=== PATIENT | female | born 1970 | race African-American/Black ===

== ENCOUNTER 2016-09-08 12:41 | Emergency (ER) | payer OTHER ==
[~2016-09-08 12:41] MED LIST: (NONE) 12.5 MG-1 TAB PO; HCTZ/LISINOPRIL1 TAB PO; LATUDA20 MG PO; LEVSIN-SL0.125 MG PO; LISINOPRIL10 MG PO; PRINIVIL 5MG5 MG PO
--- NOTE | 2016-09-08 13:21 | ED GENERAL ADULT ---
History of Present Illness General Chief Complaint: Low Back Pain/Injury Stated Complaint: SIATICA PAIN, DYSPNEA, LIGHTHEADED Source: patient Exam Limitations: no limitations Vital Signs & Intake/Output Vital Signs & Intake/Output Vital Signs Date Time Temp Pulse Resp B/P Pulse O2 O2 Flow FiO2 Ox Delivery Rate 09/08 1716 92 20 122/74 97 Room Air 09/08 1544 97.6 96 16 132/82 96 Room Air 09/08 1413 99 Room Air 09/08 1341 98.5 09/08 1244 98.5 112 20 123/88 99 Room Air Allergies Coded Allergies: NO KNOWN ALLERGIES (10/13/15) Reconcile Medications Meloxicam (Mobic) 15 MG TABLET 1 TAB PO DAILY PRN SCIATICA Triage Note: PT PRESENTS TO ER C/O OF SIATICA PAIN, CHEST TIGHTNESS, SOB WITH EXERTION, AND FEELING LIGHTHEADED. PT STATES SIATICA PAIN STARTED A FEW DAYS AGO PT DOES NOT RECALL AN INJURY OR TRIGGER TO SIATICA. PT ALSO STATE SHE HAS NOT TAKEN HER BP MEDS IN A WEEK BECAUSE SHE RAN OUT. PT STATES SHE HAS A DULL HEADACHE. PT BP AT TRIAGE 123/88 HR 112 Triage Nurses Notes Reviewed? yes Onset: Gradual Duration: day(s): (2) Timing: recent history Injury Environment: home Severity: moderate Severity Numbers: 7 Modifying Factors: Improves With: immobilization. Worsens With: movement. : No Patient currently breastfeeds: No HPI: Patient is a 45-year-old female presenting to the emergency department with chief complaint of worsening sciatic on the right side. Patient reports that she has long-standing history of sciatica over the past several years but has been worse over the past couple days. Patient also reporting lightheadedness and malaise over the past 2 days. Denies any fevers, positive chills. No sick contacts or recent travel. Denies any urinary incontinence or retention. No hematuria. Denies flank pain or abdominal pain. Has been using her pain patches with little to no relief. Denies any injury. No falls. Denies any lower extremity weakness. Patient also reporting intermittently productive cough for the past couple days. Past History Travel History Traveled to [place] past 21 day No Medical History Any Pertinent Medical History? 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 No Review of Systems Review of Systems Constitutional: Reports: malaise. Comments Review of systems: See HPI, All other systems negative. Constitutional, no chills fever or weight loss HEENT: No visual changes no sore throat Cardiovascular: No chest pain ,palpitation , orthopnea or ankle swelling Skin, no jaundice no rashes Respiratory: No dyspnea sputum or hemoptysis GI: No nausea no vomiting : No dysuria No hematuria Muscle skeletal: no neck pain, Neurologic: No numbness no confusion no cruz Psych: No stress anxiety or depression,. Heme/endocrine: No bruising no bleeding no polyuria or polydipsia Immunology: No splenectomy or history of AIDS Physical Exam Physical Exam General Appearance: well developed/nourished, no apparent distress, alert, comfortable, obese Comments: Obese person in no acute distress HEENT: extraocular motion intact, no nystagmus. Pupils equally round and reactive to light and accommodation. Nose is atraumatic. Clear nasal discharge bilaterally. External auditory canal and Tympanic membranes clear. Pharynx normal. No swelling or edema. Neck: Supple, no lymphadenopathy, normal range of motion without pain or tenderness Back: Tender to palpation over the right sacroiliac joint and right paraspinal muscles along the lumbar spine. No bony tenderness. Limited range of motion with forward flexion secondary to pain. Positive straight leg raise on the right. Cardiovascular: Regular rate and rhythms no murmurs rubs or gallops, normal JVP Respiratory: Chest nontender. No respiratory distress.breath sounds clear to auscultation bilaterally Abdomen: Soft, obese, nontender nondistended, no appreciable organomegaly. Normal bowel sounds. No ascites Extremity: Nonpitting edema in the lower extremity is bilaterally, no calf tenderness to palpation, normal and equal pulses. Neuro: Alert oriented x3, motor sensory normal, patellar reflexes are 2+ bilaterally. Skin: No appreciable rash on exposed skin, skin is warm and dry. Psych: Tearful, memory and judgment is normal. Core Measures ACS in differential dx? No CVA/TIA Diagnosis: No Severe Sepsis Present: No Septic Shock Present: No Progress Differential Diagnoses I considered the following diagnoses in my evaluation of the patient: Viral syndrome, influenza, sciatica, muscle strain, medication seeking, contusion, herniated disc, cauda equina Plan of Care: Orders Procedure Date/time Status RAPID VIRAL INFLUENZA A 09/08 1408 Complete URINE DRUG SCREEN FOR ER ONLY 09/08 1321 Complete URINALYSIS 09/08 1321 Complete TROPONIN LEVEL 09/08 1321 Complete COMPREHENSIVE METABOLIC PANEL 09/08 1321 Complete CBC WITHOUT DIFFERENTIAL 09/08 1321 Complete EKG 09/08 1249 Active Laboratory Tests 09/08/16 1541: Urine Opiates Screen < 100.00, Methadone Screen < 40, Barbiturate Screen < 60, Ur Phencyclidine Scrn < 6.00, Amphetamines Screen 127, U Benzodiazepines Scrn < 85, Urine Cocaine Screen 194, Urine Cannabis Screen > 80.00 H, Urine Color YEL, Urine Clarity CLDY H, Urine pH 6.0, Ur Specific [place] 1.020, Urine Protein 30 H, Urine Ketones NEG, Urine Nitrite NEG, Urine Bilirubin NEG@ICTO, Urine Urobilinogen 0.2, Ur Leukocyte Esterase NEG, Ur Microscopic SEDIMENT EXAMINED, Urine RBC PACKD H, Ur Epithelial Cells FEW, Urine Hemoglobin LARGE H, Urine Glucose NEG 09/08/16 1335: Anion Gap 10, Estimated GFR > 60, BUN/Creatinine Ratio 17.5, Glucose 89, Calcium 8.9, Total Bilirubin 0.3, AST 23, ALT 36, Alkaline Phosphatase 109, Troponin I 0.01, Total Protein 7.3, Albumin 3.6, Globulin 3.7, Albumin/Globulin Ratio 1.0 L, CBC w Diff NO MAN DIFF REQ, RBC 5.19, MCV 81.3, MCH 25.9 L, RDW 17.7 H, MPV 8.3, Gran % 61.1, Lymphocytes % 23.3, Monocytes % 15.0 H, Eosinophils % 0.3, Basophils % 0.3, Absolute Granulocytes 3.3, Absolute Lymphocytes 1.3, Absolute Monocytes 0.8 H, Absolute Eosinophils 0, Absolute Basophils 0, PUBS MCHC 31.9 L Microbiology 09/08 1420 NASOPHARYN: Influenza Virus A & B Rapid Smear - COMP Diagnostic Imaging: Viewed by Me: Radiology Read. Discussed w/RAD: Radiology Read. 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 Malaise. COMPARISON: None TECHNIQUE: 2 views of the chest were obtained. FINDINGS: Low lung volumes. No consolidation, edema, or effusion. No pneumothorax. The cardiomediastinal silhouette is within normal limits for this technique. No acute osseous abnormality. Mild degenerative changes in the spine. IMPRESSION: Hypoexpanded lungs with no consolidation. DICTATED BY: KURT SHEA MD DATE/TIME DICTATED:09/08/161512 Initial ED EKG: SINUS TACHYCARDIA 103 BEATS PER MINUTES Prior EKG: unchanged Comments: Patient given IV Tylenol arrival for pain. Likely exacerbation of sciatica. Neurologically intact. No focal deficits. Patient also complaining about upper respiratory symptoms. Lungs seem clear to auscultation, exam somewhat limited secondary to body habitus. Patient will fracture to rule out pneumonia. Patient was informed of all lab work results and imaging study results. Likely upper respiratory infection along with sciatica exacerbation. 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 He'll use of cough medication [id number] as well as decongestants. Orthostatics are negative. Educated on increasing fluids. She'll follow with her PCP. Started on meloxicam. Departure Departure Time of Disposition: 1700 Disposition: HOME OR SELF CARE Condition: Stable Clinical Impression Primary Impression: Upper respiratory infection Qualifiers: URI type: unspecified viral URI Qualified Codes: J06.9 - Acute upper respiratory infection, unspecified; B97.89 - Other viral agents as the cause of diseases classified elsewhere Secondary Impressions: Sciatica Qualifiers: Laterality: right Qualified Code: M54.31 - Sciatica, right side Referrals: ML DAMON MD (PCP/Family) Additional Instructions: Follow-up with your primary care physician call to make an appointment. Take meloxicam as prescribed. Avoid strenuous activity. Increase fluids. Take over -the-counter cough medication if needed. Return for worsening symptoms or concerns. Departure Forms: Customer Survey General Discharge Information Prescriptions: Current Visit Scripts Meloxicam (Mobic) 1 TAB PO DAILY PRN SCIATICA #15 TAB Critical Care Note Critical Care Note Critical Care Time: non-applicable
[2016-09-08 13:40] LABS: ABSOLUTE BASOPHIL COUNT 0 /CUMM (0.0-0.2); ABSOLUTE EOSINOPHIL COUNT 0 /CUMM (0.0-0.7); ABSOLUTE GRANULOCYTE CT 3.3 /CUMM (1.4-6.5); ABSOLUTE LYMPH COUNT 1.3 /CUMM (1.2-3.4); ABSOLUTE MONOCYTE COUNT 0.8 /CUMM (0.10-0.60); BASOPHIL % 0.3 % (0.0-2.0); EOSINOPHIL % 0.3 % (0-5); GRANULOCYTE % 61.1 % (42.2-75.2); HEMATOCRIT 42.2 % (37-47); MEAN CORPUSCULAR HGB 25.9 PG (27.0-31.0); MEAN CORPUSCULAR HGB CONC 31.9 G/DL (33.0-37.0); MEAN CORPUSCULAR VOLUME 81.3 FL (81.0-99.0); MEAN PLATELET VOLUME 8.3 FL (7.4-10.4); PLATELET COUNT 272 /CUMM (130-400); RBC DISTRIBUTION WIDTH 17.7 % (11.5-14.5); RED BLOOD CELL CT 5.19 /CUMM (4.20-5.40); WHITE BLOOD CELL COUNT 5.4 /CUMM (4.8-10.8)
--- NOTE | 2016-09-08 15:17 | RADIOLOGY REPORT ---
EXAMINATION: XR CHEST CLINICAL INFORMATION: Cough. Malaise. COMPARISON: None TECHNIQUE: 2 views of the chest were obtained. FINDINGS: Low lung volumes. No consolidation, edema, or effusion. No pneumothorax. The cardiomediastinal silhouette is within normal limits for this technique. No acute osseous abnormality. Mild degenerative changes in the spine. IMPRESSION: Hypoexpanded lungs with no consolidation.
[2016-09-08] MEDS ORDERED: MOBIC15 M1 PO (17:02)
[2016-09-08 17:16] VITALS: BP 122/74
== END 2016-09-08 17:18 ==
LOC: ERH 12:41
PROVIDERS: Physician Assistant
DX: J06.9 Acute upper respiratory infection, unspecified (principal); M54.41 Lumbago with sciatica, right side; R07.89 Other chest pain
CPT/HCPCS: 80307; 81001; 87804; 87804-59; 93005; 93010; 96374; J0131

== ENCOUNTER 2016-09-10 09:44 | Emergency (ER) | payer OTHER ==
[~2016-09-10] VITALS: Ht 157.5 cm; Wt 155.1 kg
[~2016-09-10 09:44] MED LIST changes: +MOBIC15 M1 PO
--- NOTE | 2016-09-10 10:20 | ED NECK/BACK PAIN COMPLAINT ---
History of Present Illness General Chief Complaint: Low Back Pain/Injury Stated Complaint: BACK PAIN Source: patient, old records Exam Limitations: no limitations Vital Signs & Intake/Output Vital Signs & Intake/Output Vital Signs Date Time Temp Pulse Resp B/P Pulse O2 O2 Flow FiO2 Ox Delivery Rate 09/10 1118 97.8 73 18 102/57 95 Room Air 09/10 0948 97.2 105 20 106/74 97 Room Air Allergies Coded Allergies: NO KNOWN ALLERGIES (10/13/15) Reconcile Medications Ketorolac Tromethamine 10 MG TABLET 1 TAB PO Q6P PRN sciatica Received IM in ED Lidocaine (Lidoderm) 5 % ADH..PATCH 1 PAT TOP DAILY back pain may wear up to 12 hours Meloxicam (Mobic) 15 MG TABLET 1 TAB PO DAILY PRN SCIATICA Triage Note: PT STATES "MY SCIATICA IS ACTING UP" STATES PAIN ON RIGHT LOWER BACK RADIATING DOWN RIGHT LEG SINCE 0 Triage Nurses Notes Reviewed? 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 She denies fever chills nausea vomiting diarrhea abdominal pain chest pain shortness of breath headache dysuria rash bleeding change in motor sensory function change in bowel bladder habit. Past History Travel History Traveled to [place] past 21 day No Medical History Any Pertinent Medical History? 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 No Review of Systems Review of Systems Constitutional: Reports: no symptoms. Eyes: Reports: no symptoms. Ears, Nose, Throat, Mouth: Reports: no symptoms. Respiratory: Reports: no symptoms. Cardiovascular: Reports: no symptoms. Gastrointestinal/Abdominal: Reports: no symptoms. Musculoskeletal: Reports: see HPI, back pain. Skin: Reports: no symptoms. Neurological/Psychological: Reports: no symptoms. All Other Systems: Reviewed and Negative Physical Exam Physical Exam General Appearance: well developed/nourished, alert, awake, anxious, mild distress Head: atraumatic, normal appearance Eyes: Bilateral: PERRL, EOMI. Ears, Nose, Throat, Mouth: hearing grossly normal Neck: normal inspection, supple, full range of motion, normal alignment Respiratory: normal breath sounds Cardiovascular: regular rate/rhythm Peripheral Pulses: 4+ carotid (R), 4+ carotid (L) Gastrointestinal: soft, non-tender Back: normal inspection, decreased range of motion, muscle spasm, no vertebral tenderness Extremities: normal range of motion Straight Leg Raising: Right: Negative. Left: Negative. Sensory: Medial Le: L4R, L4L. Motor: Deficit L4 Right: No Deficit L4 Left: No Deficit L5 Right: No Deficit L5 Left: No Deficit S1 Right: No Deficit S1 Right: No DTR: Deficit L4 Left: No Deficit L4 Right: No Deficit S1 Left: No Deficit S1 Right: No Patellar: 3: L4 Right, L4 Left. Neurologic/Psych: awake, alert, oriented x 3, normal mood/affect Skin: intact, normal color, warm/dry Progress Differential Diagnosis: myofascial strain, sciatica Plan of Care: Current Medications Sig/Bindu Start time Last Medication Dose Stop Time Status Admin Ketorolac 60 MG ONCE ONE 09/10 1030 UNVr Tromethamine 09/10 1031 (Toradol) Lidocaine 1 PAT ONCE ONE 09/10 1030 UNVr (Lidoderm) 09/10 1031 Departure Departure Time of Disposition: 1050 Disposition: HOME OR SELF CARE Condition: Stable Clinical Impression Primary Impression: Sciatica, right side Referrals: ML DAMON MD (PCP/Family) Departure Forms: Customer Survey General Discharge Information Prescriptions: Current Visit Scripts Ketorolac Tromethamine 1 TAB PO Q6P PRN sciatica #20 TAB Received IM in ED Lidocaine (Lidoderm) 1 PAT TOP DAILY #30 PAT may wear up to 12 hours
[2016-09-10] MEDS ORDERED: KETOROLAC TROME10 M1 PO (10:52)
[2016-09-10] MEDS ORDERED: LIDODERM1 EACH TOP (10:52)
[2016-09-10 11:18] VITALS: BP 102/57
== END 2016-09-10 11:17 ==
LOC: ERH 09:44
DX: M54.41 Lumbago with sciatica, right side (principal)
CPT/HCPCS: 96372; J1885

== ENCOUNTER 2016-09-17 17:10 | Emergency (ER) | payer OTHER ==
[~2016-09-17] VITALS: Ht 157.5 cm; Wt 156.9 kg
[~2016-09-17 17:10] MED LIST changes: +KETOROLAC TROME10 M1 PO; +LIDODERM1 EACH TOP
--- NOTE | 2016-09-17 19:25 | ED GI/GU/ABDOMINAL COMPLAINT ---
History of Present Illness General Chief Complaint: Abdominal Pain/Flank Pain Stated Complaint: R FLANK PAIN Source: patient Exam Limitations: no limitations Vital Signs & Intake/Output Vital Signs & Intake/Output Vital Signs Date Time Temp Pulse Resp B/P B/P Pulse O2 O2 Flow FiO2 Mean Ox Delivery Rate 09/18 2039 Room Air 09/17 1932 96.8 80 18 166/96 97 Room Air 09/17 1720 97.1 76 18 149/100 94 Room Air Allergies Coded Allergies: NO KNOWN ALLERGIES (10/13/15) Reconcile Medications Ibuprofen 800 MG TABLET 1 TAB PO TID PRN PAIN Ketorolac Tromethamine 10 MG TABLET 1 TAB PO Q6P PRN sciatica Received IM in ED Lidocaine (Lidoderm) 5 % ADH..PATCH 1 PAT TOP DAILY back pain may wear up to 12 hours Meloxicam (Mobic) 15 MG TABLET 1 TAB PO DAILY PRN SCIATICA Tramadol HCl 50 MG TABLET 1 TAB PO BIDP PRN BREAKTHROUGH PAIN Triage Note: PT TO TRIAGE WITH C/O R FLANK PAIN 03/10 x2DAYS, PT DENIES URINARY S/S, AND INTERMITTENT MIDDLE ABD PAIN 11/08, PT DENIES V/N/D, LAST BM TODAY WNL. HX OF KIDNEY STONES. VSS. Triage Nurses Notes Reviewed? yes ? N Is pt currently ? No Onset: Abrupt Duration: day(s): (2-3) Timing: multiple episodes today Quality/Severity: mild, moderate, sharpness, stabbing Location: right flank Radiation: periumbilical Activities at Onset: none No Modifying Factors: none HPI: 45 year old female presents to the ER for chief complaint of right flank pain x 2-3 days. It occasionally radiates to her abdomen. No fever, chills, nausea, vomiting or urinary symptoms. Last BM was normal. Denies any vaginal discharge or chance for STD's. She has a history of kidney stones, unsure if this feels the same. Past History Travel History Traveled to [place] past 21 day No Medical History Any Pertinent Medical History? 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 No Review of Systems Review of Systems Constitutional: Reports: fever (SUBJECTIVE). Denies: chills. EENTM: Reports: no symptoms. Respiratory: Denies: cough, short of breath. Cardiovascular: Denies: chest pain. GI: Reports: abdominal pain, nausea. Denies: vomiting. Genitourinary: Reports: no symptoms. Musculoskeletal: Reports: back pain. Skin: Reports: no symptoms. Neurological/Psychological: Reports: no symptoms. Hematologic/Endocrine: Denies: bruising, bleeding, polyuria, polydipsia. Immunologic/Allergic: Denies: splenectomy. All Other Systems: Reviewed and Negative Physical Exam Physical Exam General Appearance: well developed/nourished, alert, awake, mild distress, obese Head: atraumatic, normal appearance Eyes: Bilateral: normal appearance, PERRL, EOMI. Ears, Nose, Throat, Mouth: hearing grossly normal, moist mucous membrane Neck: normal inspection, supple, full range of motion Respiratory: normal breath sounds, chest non-tender, no respiratory distress Cardiovascular: regular rate/rhythm Peripheral Pulses: 2+ radial (R), 2+ radial (L) Gastrointestinal: normal bowel sounds, soft, tenderness (RUQ) Back: CVA tenderness (R) Extremities: normal range of motion Neurologic/Psych: no motor/sensory deficits, awake, alert, oriented x 3 Skin: intact, normal color, warm/dry Core Measures ACS in differential dx? No Severe Sepsis Present: No Septic Shock Present: No Progress Differential Diagnosis: diverticulitis, kidney stone, ovarian cyst, ovarian torsion, PID/cervicitis, UTI/pyelo, RETAINED BILIARY STONE, COLITIS Plan of Care: Orders Procedure Date/time Status URINE 09/17 1930 Complete URINALYSIS 09/17 1930 Complete COMPREHENSIVE METABOLIC PANEL 09/17 1930 Complete CBC WITHOUT DIFFERENTIAL 09/17 1930 Complete Laboratory Tests 09/17/162047: Anion Gap 9, Estimated GFR > 60, BUN/Creatinine Ratio 22.2, Glucose 86, Calcium 8.6, Total Bilirubin 0.5, AST 33, ALT 50, Alkaline Phosphatase 107, Total Protein 6.8, Albumin 3.3 L, Globulin 3.5, Albumin/Globulin Ratio 0.9 L 09/17/16 2010: CBC w Diff NO MAN DIFF REQ, RBC 5.17, MCV 81.5, MCH 26.4 L, RDW 18.0 H, MPV 9.6, Gran % 58.8, Lymphocytes % 30.3, Monocytes % 8.8, Eosinophils % 1.6, Basophils % 0.5, Absolute Granulocytes 6.5, Absolute Lymphocytes 3.3, Absolute Monocytes 1.0 H, Absolute Eosinophils 0.2, Absolute Basophils 0.1, PUBS MCHC 32.4 L, Urinalysis LIGHT H, Urine Color YEL, Urine Clarity HAZY H, Urine pH 5.5, Ur Specific [place] >= 1.030, Urine Protein 30 H, Urine Ketones TRACE H, Urine Nitrite NEG, Urine Bilirubin NEG@ICTO, Urine Urobilinogen 1.0, Ur Leukocyte Esterase NEG, Ur Microscopic SEDIMENT EXAMINED, Urine RBC RARE, Urine WBC 1-3 H, Ur Epithelial Cells MANY H, Urine Bacteria MANY H, Urine Mucus MANY H, Urine Hemoglobin NEG, Urine Glucose NEG, Urine Test NEGATIVE LABS, URINALYSIS, CT SCAN ORDERED. NS, TORADOL ORDERED. NO RELIEF WITH TORADOL. IV MORPHINE ORDERED. CT SCAN RESULTS PENDING. DISCUSSED RESULTS OF CT SCAN ABDOMEN WITH PATIENT. SHE WILL FOLLOW UP WITH OUTPATIENT TRANSVAGINAL ULTRASOUND AND WITH OB REFERRAL. PATIENT WITHOUT CLINICAL SIGNS OF OVARIAN TORSION. (NORTH ROJAS,NICHOLAS) Diagnostic Imaging: Viewed by Me: CT Scan. Discussed w/RAD: CT Scan. 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 COMPARISON: Abdominal CT 08/29/2014. TECHNIQUE: Multidetector volumetric imaging was performed from the superior aspect of the liver through the pubic symphysis. Sagittal and coronal reformatted images were obtained on the technologist's workstation. FINDINGS: The lung bases are clear. Limited evaluation of the unenhanced liver, spleen, and pancreas reveals no definite abnormality. There is a stable appearing small 1.2 cm left adrenal adenoma. Gallbladder is been surgically removed. The kidneys are symmetric in size without evidence of hydronephrosis or nephrolithiasis. The large and small bowel are normal in caliber without evidence of mechanical obstruction. Colonic diverticulosis without evidence of acute diverticulitis. No focal inflammatory changes adjacent to the large or the small bowel. The appendix is normal. There is no free air and there is no intra-abdominal free fluid. No mesenteric or retroperitoneal adenopathy. Mixed cystic and solid right adnexal lesion appears increased in size in comparison to the previous CT study, currently measuring up to 5 cm x 4.7 cm compared to 4.8 cm x 2.8 cm previously. Recommend follow-up with pelvic ultrasound. No pelvic adenopathy. No free fluid within the pelvis. There are no acute osseous abnormalities. There are degenerative changes throughout the visualized thoracic spine and at L5-S1 there is severe bilateral foraminal stenosis. No significant soft tissue abnormality. IMPRESSION: - No radiopaque renal calculi. No hydronephrosis. - Mixed cystic and solid right adnexal lesion appears increased in size in comparison to the previous CT study, currently measuring up to 5 cm x 4.7 cm compared to 4.8 cm x 2.8 cm previously. Recommend follow-up with pelvic ultrasound. - Colonic diverticulosis without evidence of acute diverticulitis - There is a stable appearing small 1.2 cm left adrenal adenoma. - Cholecystectomy. DICTATED BY: AMERICA HARMON MD DATE/TIME DICTATED:09/17/162135 LUBE TECHNICIAN:NICANOR DATE/TIME TRANSCRIBED:09/17/162135 CONFIDENTIAL, DO NOT COPY WITHOUT APPROPRIATE AUTHORIZATION. <Electronically signed in Other Vendor System> SIGNED BY: AMERICA HARMON MD 09/17/162150 Departure Departure Time of Disposition: 2205 Disposition: HOME OR SELF CARE Condition: Stable Clinical Impression Primary Impression: Flank pain Secondary Impressions: Adnexal mass Referrals: MAJO LEGER DO, MD,ML (PCP/Family) Additional Instructions: Follow up with outpatient ultrasound and with the energy sales broker doctor listed. Take the tramadol as directed and motrin as directed. Return as needed. Departure Forms: Customer Survey General Discharge Information Prescriptions: Current Visit Scripts Ibuprofen 1 TAB PO TID PRN PAIN #20 TAB Tramadol HCl 1 TAB PO BIDP PRN BREAKTHROUGH PAIN #12 TAB
[2016-09-17 20:22] LABS: ABSOLUTE BASOPHIL COUNT 0.1 /CUMM (0.0-0.2); ABSOLUTE EOSINOPHIL COUNT 0.2 /CUMM (0.0-0.7); ABSOLUTE GRANULOCYTE CT 6.5 /CUMM (1.4-6.5); ABSOLUTE LYMPH COUNT 3.3 /CUMM (1.2-3.4); BASOPHIL % 0.5 % (0.0-2.0); EOSINOPHIL % 1.6 % (0-5); GRANULOCYTE % 58.8 % (42.2-75.2); HEMATOCRIT 42.2 % (37-47); MEAN CORPUSCULAR HGB 26.4 PG (27.0-31.0); MEAN CORPUSCULAR HGB CONC 32.4 G/DL (33.0-37.0); MEAN CORPUSCULAR VOLUME 81.5 FL (81.0-99.0); MEAN PLATELET VOLUME 9.6 FL (7.4-10.4); PLATELET COUNT 349 /CUMM (130-400); RED BLOOD CELL CT 5.17 /CUMM (4.20-5.40)
--- NOTE | 2016-09-17 21:51 | CT SCAN REPORT ---
EXAMINATION: CT ABDOMEN AND PELVIS WITHOUT CONTRAST CLINICAL INFORMATION: Flank pain to rule out renal stone. COMPARISON: Abdominal CT 08/29/2014. TECHNIQUE: Multidetector volumetric imaging was performed from the superior aspect of the liver through the pubic symphysis. Sagittal and coronal reformatted images were obtained on the technologist's workstation. FINDINGS: The lung bases are clear. Limited evaluation of the unenhanced liver, spleen, and pancreas reveals no definite abnormality. There is a stable appearing small 1.2 cm left adrenal adenoma. Gallbladder is been surgically removed. The kidneys are symmetric in size without evidence of hydronephrosis or nephrolithiasis. The large and small bowel are normal in caliber without evidence of mechanical obstruction. Colonic diverticulosis without evidence of acute diverticulitis. No focal inflammatory changes adjacent to the large or the small bowel. The appendix is normal. There is no free air and there is no intra-abdominal free fluid. No mesenteric or retroperitoneal adenopathy. Mixed cystic and solid right adnexal lesion appears increased in size in comparison to the previous CT study, currently measuring up to 5 cm x 4.7 cm compared to 4.8 cm x 2.8 cm previously. Recommend follow-up with pelvic ultrasound. No pelvic adenopathy. No free fluid within the pelvis. There are no acute osseous abnormalities. There are degenerative changes throughout the visualized thoracic spine and at L5-S1 there is severe bilateral foraminal stenosis. No significant soft tissue abnormality. IMPRESSION: - No radiopaque renal calculi. No hydronephrosis. - Mixed cystic and solid right adnexal lesion appears increased in size in comparison to the previous CT study, currently measuring up to 5 cm x 4.7 cm compared to 4.8 cm x 2.8 cm previously. Recommend follow-up with pelvic ultrasound. - Colonic diverticulosis without evidence of acute diverticulitis - There is a stable appearing small 1.2 cm left adrenal adenoma. - Cholecystectomy.
[2016-09-17] MEDS ORDERED: TRAMADOL HCL50 M1 PO (22:07)
[2016-09-17] MEDS ORDERED: IBUPROFEN800 M1 PO (22:07)
[2016-09-17 22:19] VITALS: BP 158/96
== END 2016-09-17 22:20 ==
LOC: ERH 17:10
PROVIDERS: Emergency Medicine
DX: R19.09 Other intra-abdominal and pelvic swelling, mass and lump (principal)
CPT/HCPCS: 74176; 81001; 81025; 96374; 96375; J1885

== ENCOUNTER 2016-09-24 13:57 | Emergency (ER) | payer OTHER ==
[~2016-09-24] VITALS: Ht 157.5 cm; Wt 156.9 kg
[~2016-09-24 13:57] MED LIST changes: +IBUPROFEN800 M1 PO; +TRAMADOL HCL50 M1 PO
[2016-09-24 14:07] VITALS: BP 147/93
--- NOTE | 2016-09-24 17:07 | ED GENERAL ADULT ---
History of Present Illness General Chief Complaint: General Adult Stated Complaint: REQ PAIN MEDS Vital Signs & Intake/Output Vital Signs & Intake/Output Vital Signs Date Time Temp Pulse Resp B/P B/P Pulse O2 O2 Flow FiO2 Mean Ox Delivery Rate 09/24 1658 Room Air 09/24 1407 97.9 91 20 147/93 94 Room Air Allergies Coded Allergies: NO KNOWN ALLERGIES (10/13/15) Reconcile Medications Ibuprofen 800 MG TABLET 1 TAB PO TID PRN PAIN Ketorolac Tromethamine 10 MG TABLET 1 TAB PO Q6P PRN sciatica Received IM in ED Lidocaine (Lidoderm) 5 % ADH..PATCH 1 PAT TOP DAILY back pain may wear up to 12 hours Meloxicam (Mobic) 15 MG TABLET 1 TAB PO DAILY PRN SCIATICA Tramadol HCl 50 MG TABLET 1 TAB PO BIDP PRN BREAKTHROUGH PAIN Triage Note: PT TO ED REQUESTING PAIN MEDS. STATES HAS APPT WITH HER OBGYN AND PCP THIS WEEK. CANNOT WAIT FOR PAIN MEDS UNTIL THEN. 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
== END 2016-09-24 16:57 | disposition admitted as inpatient to this hospital (09) ==
LOC: ERH 13:57
DX: Z76.0 Encounter for issue of repeat prescription (principal)

== ENCOUNTER 2016-12-25 20:33 | Emergency (ER) | payer OTHER, MEDICARE ==
[~2016-12-25 20:33] MED LIST changes: +CEFADROXIL500 M1 PO; +DELTASONE20 MG PO
[2016-12-25 21:10] VITALS: BP 138/88
--- NOTE | 2016-12-25 21:58 | ED NECK/BACK PAIN COMPLAINT ---
History of Present Illness General Chief Complaint: General Adult Stated Complaint: "I HAVE A SLIPPED DISC..." MULTIPLE COMPLAINTS Source: patient Exam Limitations: no limitations Vital Signs & Intake/Output Vital Signs & Intake/Output Vital Signs Date Time Temp Pulse Resp B/P B/P Pulse O2 O2 Flow FiO2 Mean Ox Delivery Rate 12/25 2109 98.6 102 22 138/88 95 Room Air Allergies Coded Allergies: NO KNOWN ALLERGIES (10/13/15) Triage Note: PER PT SCIATICA ACTING UP, ALSO WITH COLD SYMPTOMS AND EYE WATERY SINCE AM Triage Nurses Notes Reviewed? yes Onset: Gradual Duration: constant Timing: single episode today Location: paraspinous muscles Radiation: buttocks, upper legs : No Patient currently breastfeeds: No HPI: Patient is a 46-year-old female with past medical history of sciatica who is in every day smoker who presents emergency room with a three-day history of clear eye watery discharge, nasal congestion and nonproductive cough and head cold symptoms also patient states that she woke up today out of bed and complained of a gradual onset of her reoccurrence of right-sided gluteal sciatica pain with mild radiation down her right leg. Patient denies any mechanism of injury. Denies any saddle paresthesia or bowel bladder incontinence. Denies any fever chills ear pain sore throat chest pain are pain jaw pain. Patient states that she took ibuprofen and a friend's Tylenol with codeine with no relief of symptoms (NICOLAS KOLB) Reconcile Medications Benzonatate (Tessalon Perle) 100 MG CAPSULE 1 CAP PO TID PRN COUGH Cefadroxil 500 MG CAPSULE 2 CAP PO BID LYMPH NODES Desloratadine (Clarinex) 5 MG TABLET 1 TAB PO DAILY ALLERGIES Fluticasone Propionate (Flonase Allergy Relief) 50 MCG/ACTUATION SPRAY.SUSP 1 SPRAY NAIKET DAILY PRN CONGESTION Ketorolac Tromethamine 10 MG TABLET 1 TAB PO TID PRN pain Methylprednisolone. (Medrol) 4 MG TAB.DS.PK 1 DP PO AD INFLAMMATION 6 on day 1 then reduce by one tablet daily until gone Prednisone (Deltasone) 20 MG TABLET 3 TAB PO DAILY ITCH (LUIS FERNANDO ROJAS,CHANI) Past History Travel History Traveled to [place] past 21 day No Medical History Any Pertinent Medical History? 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 No (NICOLAS KOLB) Review of Systems Review of Systems Constitutional: Reports: see HPI. Eyes: Reports: see HPI. Ears, Nose, Throat, Mouth: Reports: no symptoms. Respiratory: Reports: see HPI, cough. Cardiovascular: Reports: no symptoms. Gastrointestinal/Abdominal: Reports: no symptoms. Musculoskeletal: Reports: see HPI, back pain. Skin: Reports: no symptoms. Neurological/Psychological: Reports: no symptoms. All Other Systems: Reviewed and Negative (NICOLAS KOLB) Physical Exam Physical Exam General Appearance: no apparent distress, alert, obese Neck: normal inspection, supple Comments: HEENT: , extraocular motion intact, no nystagmus. Pupils equally round and reactive to light and accommodation. Nose is atraumatic. External auditory canal and Tympanic membranes clear. Pharynx normal. No swelling or edema. Nasal congestion noted nontender sinus, Neck: Supple, no lymphadenopathy, normal range of motion without pain or tenderness Back: Normal inspection, right-sided paralumbar muscular point tenderness no central spinous tenderness decreased active range of motion noted Cardiac -regular rate and rhythm no murmurs rubs or gallops, normal JVP Respiratory: Chest nontender. No respiratory distress.breath sounds clear to auscultation bilaterally Abdomen: Soft, nontender nondistended, no appreciable organomegaly. Normal bowel sounds. No ascites Extremity: No edema, no calf tenderness to palpation, normal and equal pulses. Bilateral lower extremity myotomes dermatomes intact Neuro: Alert oriented x3, motor sensory normal, Skin: No appreciable rash on exposed skin, skin is warm and dry. Psych: Mood and affect is normal, memory and judgment is normal. (NICOLAS KOLB) Progress Differential Diagnosis: C spine injury, carotid dissection, cauda equina syn, herniated disc, myofascial strain, pyelo/UTI, sciatica, spinal cord inj, thoracic outlet syn, T/L spine injury, ureterolithiasis, VIRAL SYNDROME, SINUSITIS, PHARYNGITIS, OTITIS MEDIA, OTITIS EXTERNA, PNEUMONIA, ASTHMA EXACERBATION, SEPSIS aaa Plan of Care: Current Medications Sig/Bindu Start time Last Medication Dose Stop Time Status Admin Ketorolac 30 MG ONCE ONE 12/25 2244 UNVr Tromethamine 12/25 2245 (Toradol) Patient noted to be ambulating today restroom with steady gait no apparent distress Patient has no concerns of CUADA EQUINA or acute trauma or osseous injury. Patient's bilateral lower extremity was neurovascularly intact. Patient had clear lungs auscultation and was afebrile nontoxic appearing and patient will be treated for concerns of upper respiratory infection viral syndrome. Patient was strongly advised to follow up with primary care doctor (NICOLAS KOLB) Departure Departure Disposition: HOME OR SELF CARE Condition: Stable Clinical Impression Primary Impression: Sciatica, right side Secondary Impressions: Allergic rhinitis, Upper respiratory infection, Viral syndrome Referrals: ML DAMON MD (PCP/Family) Additional Instructions: As discussed begin the prescription of Medrol Dosepak for inflammation, Tessalon Perles for cough, ketorolac for pain, Clarinex for allergies and Flonase for nasal congestion. If no better on Thursday follow-up with primary care doctor. Begin heating or icing the area directly 20 minutes every 2 hours. Activity as tolerated. If symptoms worsen or if YOU develop new concerning symptom return to emergency room immediately Prescriptions are waiting a [facility] Departure Forms: Customer Survey General Discharge Information Prescriptions: Current Visit Scripts Ketorolac Tromethamine 1 TAB PO TID PRN pain #15 TAB Methylprednisolone. (Medrol) 1 DP PO AD #1 DP 6 on day 1 then reduce by one tablet daily until gone Benzonatate (Tessalon Perle) 1 CAP PO TID PRN COUGH #21 CAP Desloratadine (Clarinex) 1 TAB PO DAILY #30 TAB Fluticasone Propionate (Flonase Allergy Relief) 1 SPRAY ANIKET DAILY PRN CONGESTION #1 BOT (NICOLAS KOLB) PA/CONTAINER FINISHING INSPECTOR Co-Sign Statement Statement: ED Attending supervision documentation- I saw and evaluated the patient. I have also reviewed all the pertinent lab results and diagnostic results. I agree with the findings and the plan of care as documented in the PA's/CONTAINER FINISHING INSPECTOR's documentation. x I have reviewed the ED Record and agree with the PA's/CONTAINER FINISHING INSPECTOR's documentation. [] Additions or exceptions (if any) to the PAs/CONTAINER FINISHING INSPECTOR's note and plan are summarized below: [] (LUIS FERNANDO ROJAS,CHANI)
[2016-12-25] MEDS ORDERED: MEDROL4 M2 PO (22:40)
[2016-12-25] MEDS ORDERED: TESSALON PERLE100 M1 PO (22:40)
[2016-12-25] MEDS ORDERED: KETOROLAC TROME10 M1 PO (22:40)
[2016-12-25] MEDS ORDERED: FLONASE ALLERG9.9 ML NAS (22:40)
[2016-12-25] MEDS ORDERED: CLARINEX5 M1 PO (22:40)
== END 2016-12-25 23:09 ==
LOC: ERH 20:33
DX: M54.41 Lumbago with sciatica, right side (principal); J30.9 Allergic rhinitis, unspecified; J06.9 Acute upper respiratory infection, unspecified; B34.9 Viral infection, unspecified; F17.210 Nicotine dependence, cigarettes, uncomplicated
CPT/HCPCS: 96372; J1885

== ENCOUNTER 2017-10-14 11:07 | Inpatient (IN) | payer OTHER, MEDICARE ==
[~2017-10-14] VITALS: Ht 157.5 cm; Wt 145.7 kg
[~2017-10-14 11:07] MED LIST changes: +AUGMENTIN 875-1 EACH PO; +CLARINEX5 M1 PO; +FLONASE ALLERG9.9 ML NAS; +MEDROL4 M2 PO; +TESSALON PERLE100 M1 PO; +TYLENOL WITH C1 EACH PO
--- NOTE | 2017-10-14 12:08 | ED GENERAL ADULT ---
History of Present Illness General Chief Complaint: Abdominal Pain/Flank Pain Stated Complaint: ABD PAIN Source: patient Exam Limitations: no limitations Vital Signs & Intake/Output Vital Signs & Intake/Output Vital Signs Date Time Temp Pulse Resp B/P B/P Pulse O2 O2 Flow FiO2 Mean Ox Delivery Rate 10/14 1146 97.3 96 18 96 Room Air Allergies Coded Allergies: NO KNOWN ALLERGIES (10/13/15) Reconcile Medications Amoxicillin/Potassium Clav (Augmentin 875-125 Tablet) 875 MG-125 MG TABLET 1 TAB PO BID PELVIC INFECTION Benzonatate (Tessalon Perle) 100 MG CAPSULE 1 CAP PO TID PRN COUGH Cefadroxil 500 MG CAPSULE 2 CAP PO BID LYMPH NODES Desloratadine (Clarinex) 5 MG TABLET 1 TAB PO DAILY ALLERGIES Fluticasone Propionate (Flonase Allergy Relief) 50 MCG/ACTUATION SPRAY.SUSP 1 SPRAY ANIKET DAILY PRN CONGESTION Ketorolac Tromethamine 10 MG TABLET 1 TAB PO TID PRN pain Methylprednisolone. (Medrol) 4 MG TAB.DS.PK 1 DP PO AD INFLAMMATION 6 on day 1 then reduce by one tablet daily until gone Prednisone (Deltasone) 20 MG TABLET 3 TAB PO DAILY ITCH Tylenol With Codeine (Tylenol With Codeine #3 Tablet) 300 MG-30 MG TABLET 1 TAB PO Q4-6 PRN PRN PAIN Triage Note: PT BIBA FROM HOME C/C LLQ PAIN X 4 DAYS. SEEN FOR SAME LAST NIGHT, DIAGNOSED WITH OVARIAN CYST. PT EVALUATED BY GABY MCGUIRE, GIVEN COURSE OF ABX (HAS NOT STARTED THEM YET). D/X INSTRUCTIONS STATE, "IF YOU CANNOT BE SEEN IN DR. SANTILLAN'S OFFICE TOMORROW F/U IN EMERGENCY DEPARTMENT". PT STATES WHEN SHE CALLED DR. SANTILLAN'S OFFICE SHE WAS ADVISED TO PRESENT TO ER TO BE SEEN. Triage Nurses Notes Reviewed? yes Onset: Abrupt Duration: day(s): Timing: recent history : No Patient currently breastfeeds: No HPI: 10/14/17 12:10 PM 46-year-old female presents to the emergency department for ongoing pain. She was referred to return to the emergency department for admission to the hospital for tubo-ovarian abscess. Past History Travel History Traveled to [place] past 21 day No Medical History Any Pertinent Medical History? 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 No Review of Systems Review of Systems Constitutional: Denies: fever. EENTM: Reports: no symptoms. Respiratory: Reports: no symptoms. Cardiovascular: Reports: no symptoms. GI: Reports: abdominal pain. Genitourinary: Reports: no symptoms. Musculoskeletal: Reports: no symptoms. Skin: Reports: no symptoms. Neurological/Psychological: Reports: no symptoms. Hematologic/Endocrine: Reports: no symptoms. Immunologic/Allergic: Reports: no symptoms. Physical Exam Physical Exam General Appearance: well developed/nourished, alert, awake, mild distress Head: atraumatic, normal appearance Eyes: Bilateral: normal appearance, PERRL, EOMI. Ears, Nose, Throat: normal ENT inspection Neck: normal inspection Respiratory: no respiratory distress Cardiovascular: regular rate/rhythm Peripheral Pulses: 3+ radial (R), 3+ radial (L) Gastrointestinal: soft, tenderness Extremities: pedal edema Neurologic/Psych: no motor/sensory deficits, awake, alert, oriented x 3 Skin: intact, normal color, warm/dry Core Measures ACS in differential dx? No CVA/TIA Diagnosis: No Sepsis Present: No Sepsis Focused Exam Completed? No Progress Differential Diagnoses I considered the following diagnoses in my evaluation of the patient: [Tubo- ovarian abscess, peritonitis] Plan of Care: Orders Procedure Date/time Status Heart Healthy Diet 10/14 D Active BLOOD CULTURE 10/14 1212 Active Saline Lock 10/14 1211 Active COMPREHENSIVE METABOLIC PANEL 10/14 1211 Active CBC WITHOUT DIFFERENTIAL 10/14 1211 Active ED Holding Orders 10/14 1209 Active Admit to inpatient 10/14 1209 Active Vital Signs 10/14 1209 Active Code Status 10/14 1209 Active Microbiology 10/14 1212 BLOOD: Blood Culture - ORD 10/14 1212 BLOOD: Blood Culture - ORD Initial ED EKG: none Departure Departure Disposition: STILL A PATIENT Condition: Stable Clinical Impression Primary Impression: Tubo-ovarian abscess Referrals: Ariel George MD (PCP/Family) Departure Forms: Customer Survey General Discharge Information Admission Note Spoke With: Rogelio Santillan MD Documentation of Exam: Documentation of any treatments & extenuating circumstances including Concerns Regarding Discharge (functional status, medication knowledge or non-compliance, living conditions, etc.) that warrant an admission rather than observation: [The patient needs IV antibiotics, CREAM RIPENER consultation] Critical Care Note Critical Care Note Critical Care Time: non-applicable
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
[2017-10-14 13:04] LABS: ABSOLUTE BASOPHIL COUNT 0 /CUMM (0.0-0.2); ABSOLUTE EOSINOPHIL COUNT 0.2 /CUMM (0.0-0.7); ABSOLUTE GRANULOCYTE CT 13.5 /CUMM (1.4-6.5); ABSOLUTE LYMPH COUNT 1.4 /CUMM (1.2-3.4); ABSOLUTE MONOCYTE COUNT 1.4 /CUMM (0.10-0.60); BASOPHIL % 0.1 % (0.0-2.0); GRANULOCYTE % 81.9 % (42.2-75.2); HEMATOCRIT 35.5 % (37-47); MEAN CORPUSCULAR HGB 26.6 PG (27.0-31.0); MEAN CORPUSCULAR HGB CONC 32.5 G/DL (33.0-37.0); MEAN CORPUSCULAR VOLUME 81.9 FL (81.0-99.0); MEAN PLATELET VOLUME 8.3 FL (7.4-10.4); PLATELET COUNT 401 /CUMM (130-400); RBC DISTRIBUTION WIDTH 18.4 % (11.5-14.5); RED BLOOD CELL CT 4.33 /CUMM (4.20-5.40); WHITE BLOOD CELL COUNT 16.5 /CUMM (4.8-10.8)
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
[2017-10-14 22:23] VITALS: BP 113/87
[2017-10-15 06:58] VITALS: BP 116/82
[2017-10-15 06:59] VITALS: BP 118/66
--- NOTE | 2017-10-15 08:16 | PN- OBGYN ---
Surgical Brief Attending Note Brief Attending Note: Seen and evaluated Doing better. Pain controlled last night. BM last evening. Feels better than when pain initially started. [place] mild headache. Denies nausea Vitals. T 98.5 P 61 BP 118/66 Abdomen soft no rebound nor guarding. Extremities no edema and full range of movement Neuro. Aox3 No focal deficits Meds. Unasyn Doxycycline Lovenox Probiotics Vitamin C and D Lisinopril HCTZ Redemonstration of a complex cystic structure within the right adnexa. This is again noted to be increased in size. This currently measures 6.7 x 4.9 x 5.7 cm. Compares to 4.5 x 3.5 x 6 cm on the prior study when measured by me in similar plane. Hd#1 for this patient with HTN and obesity found with 6 cm TOA on the right. ID. Afebrile. Continue on IV antibiotics. Follow up WBC but had declined from 23 to 16.5 Denies loose stools. Continue on probiotics Cardiac. BP controlled on two agents. VTE prophylaxis Continue on lovenox. If clinically stable tomorrow than for DC to complete 10-14 days of antibiotics. Reimaging in several weeks or as clinically indicated. Mammogram negative 2017 and Pap negative 2015 No home nursing needs identified.
[2017-10-15 12:53] LABS: ABSOLUTE BASOPHIL COUNT 0 /CUMM (0.0-0.2); ABSOLUTE EOSINOPHIL COUNT 0.2 /CUMM (0.0-0.7); ABSOLUTE GRANULOCYTE CT 9.8 /CUMM (1.4-6.5); ABSOLUTE LYMPH COUNT 2.5 /CUMM (1.2-3.4); ABSOLUTE MONOCYTE COUNT 1.3 /CUMM (0.10-0.60); BASOPHIL % 0.1 % (0.0-2.0); EOSINOPHIL % 1.7 % (0-5); GRANULOCYTE % 70.9 % (42.2-75.2); HEMATOCRIT 38.5 % (37-47); MEAN CORPUSCULAR HGB 26.7 PG (27.0-31.0); MEAN CORPUSCULAR VOLUME 80.8 FL (81.0-99.0); MEAN PLATELET VOLUME 8.2 FL (7.4-10.4); PLATELET COUNT 468 /CUMM (130-400); RBC DISTRIBUTION WIDTH 18.7 % (11.5-14.5); RED BLOOD CELL CT 4.76 /CUMM (4.20-5.40); WHITE BLOOD CELL COUNT 13.9 /CUMM (4.8-10.8)
--- NOTE | 2017-10-15 13:10 | PN- OBGYN ---
Surgical Brief Attending Note Brief Attending Note: Follow up cbc showing wbc of 13.9 down from 23. Seen oob ambulating without assistance. Plan for DC 10/16/18
[2017-10-15 13:54] VITALS: BP 152/106
[2017-10-15 22:48] VITALS: BP 134/86
[2017-10-15 23:43] VITALS: BP 156/84
[2017-10-16 07:01] VITALS: BP 130/82
--- NOTE | 2017-10-16 08:43 | PN- OBGYN ---
Surgical Brief Attending Note Brief Attending Note: Seen and evaluated Had one loose stool but then formed thereafter One episode of mild nausea after medication Pain is better per patient. Afebrile Plan Follow up cbc. If continues to fall than plan for discharge and follow up one week for reassessment. Discussed nutrition related aspects of her health. Goals for increase in fruits /vegetables. Goals to take the NRT daily to reduce smoking use. Goals for taking Vitamin D daily as she was low. Goals for probiotics to reduce antibiotic associated diarrhea and kavya. Pelvic rest from intercourse at present. Consider progestin only pill for her to reduce PID risks. HTN is controlled on her current regimen
[2017-10-16 09:00] VITALS: BP 130/82
[2017-10-16 09:35] LABS: ABSOLUTE BASOPHIL COUNT 0 /CUMM (0.0-0.2); ABSOLUTE EOSINOPHIL COUNT 0.2 /CUMM (0.0-0.7); ABSOLUTE GRANULOCYTE CT 8.7 /CUMM (1.4-6.5); BASOPHIL % 0.1 % (0.0-2.0); EOSINOPHIL % 1.7 % (0-5); GRANULOCYTE % 73.1 % (42.2-75.2); MEAN CORPUSCULAR HGB 26.3 PG (27.0-31.0); MEAN CORPUSCULAR HGB CONC 32.4 G/DL (33.0-37.0); MEAN CORPUSCULAR VOLUME 81.1 FL (81.0-99.0); MEAN PLATELET VOLUME 8.3 FL (7.4-10.4); PLATELET COUNT 451 /CUMM (130-400); RBC DISTRIBUTION WIDTH 18.5 % (11.5-14.5); RED BLOOD CELL CT 4.73 /CUMM (4.20-5.40)
[2017-10-16 09:50] LABS: HEMATOCRIT 38.3 % (37-47)
[2017-10-16] MEDS ORDERED: AUGMENTIN 875-1 EACH PO (10:03)
[2017-10-16] MEDS ORDERED: VITAMIN C500 M8 PO (10:04)
--- NOTE | 2017-10-16 11:01 | Discharge Summary ---
Visit Information Visit Dates Admission Date: 10/14/17 Discharge Date: 10/16/17 Hospital Course Course Attending Physician: Rogelio Hernandez MD Primary Care Physician: Ariel George MD Hospital Course: Patient was admitted on 10/14/17 for TOA and received IV antibiotics. Clinical course for same showed improvement and improvement in WBC. Complications: None Allergies: Coded Allergies: NO KNOWN ALLERGIES (10/13/15) Significant Procedures: IV antibiotics S/p CT scan 10/13/17 Pertinent Lab Results: WBC 23 reduced to 12 on discharge Disposition Summary Disposition Principal Diagnosis: Tuboovarian abcess on Right Additional Diagnosis: HTN and Obesity Discharge Disposition: home or self care Discharge Instructions General Discharge Information Code Status: Full Code Patient's Diet: Low sodium Patient's Activity: As tolerated Follow-Up Instructions/Appts: 10/23/17 for follow up with Dr Hernandez Medications at Discharge Discharge Medications: Stop taking the following medications: Prednisone (Deltasone) 20 MG TABLET ORAL DAILY Qty = 15 Cefadroxil (Cefadroxil) 500 MG CAPSULE ORAL TWICE DAILY Qty = 28 Ketorolac Tromethamine (Ketorolac Tromethamine) 10 MG TABLET ORAL THREE TIMES DAILY as needed for pain Qty = 15 Methylprednisolone. (Medrol) 4 MG TAB.DS.PK ORAL As Directed Qty = 1 Benzonatate (Tessalon Perle) 100 MG CAPSULE ORAL THREE TIMES DAILY as needed for COUGH Qty = 21 Desloratadine (Clarinex) 5 MG TABLET ORAL DAILY Qty = 30 Fluticasone Propionate (Flonase Allergy Relief) 50 MCG/ACTUATION SPRAY.SUSP In the nose DAILY as needed for CONGESTION Qty = 1 Tylenol With Codeine (Tylenol With Codeine #3 Tablet) 300 MG-30 MG TABLET ORAL EVERY 4-6 HOURS NEEDED as needed for PAIN Qty = 10 Continue taking these medications: Amoxicillin/Potassium Clav (Augmentin 875-125 Tablet) 875 MG-125 MG TABLET 1 Tablet ORAL TWICE DAILY Qty = 20 This prescription has been renewed Start taking the following new medications: Ascorbic Acid (Vitamin C) 500 MG TABLET 500 Milligram ORAL TWICE DAILY Qty = 30 No Refills Copies To: Rogelio Hernandez MD, MD Review Statement Documenting Attending: Rogelio Hernandez MD Other Findings: Script for oxycodone called in to [facility] Script for Doxycycline called in to [facility] To take probiotics daily Vitamin D to use daily at home To use NRT 7 mg patch daily Nutritional counseling provided. She states she is down 20 lbs. Pelvic rest advised. If loose stools more than 3 per day than alert provider. However I will contact her Thursday the for follow up. Treatment plan outlined and understood by patient.
== END 2017-10-16 12:44 | DRG 758 ==
LOC: ERH 11:07 → 2NB 12:09 → ERHI 12:09 → ENRESERV 13:56 → ENTRNSPT 14:20 → EDTRNSPTSTS 14:24 → EDTRNSPT 14:24 → 2NB 14:34 → CMPTRNSPT 15:04 → ENPENDDIS 10-16 12:22 → 2NB 10-16 12:44
PROVIDERS: Emergency Medicine; Obstetrics & Gynecology
DX: N70.93 Salpingitis and oophoritis, unspecified (principal); Z68.43 Body mass index [BMI] 50.0-59.9, adult; E66.01 Morbid (severe) obesity due to excess calories; R10.9 Unspecified abdominal pain; Z72.0 Tobacco use; N74 Female pelvic inflammatory disorders in diseases classified elsewhere; I10 Essential (primary) hypertension
CPT/HCPCS: 2NBP; 36415; 74177; 81001; 87040; 93005; 93010; J1650; J3490

== ENCOUNTER 2017-12-01 23:35 | Emergency (ER) | payer OTHER, MEDICARE ==
[~2017-12-01 23:35] MED LIST changes: +VITAMIN C500 M8 PO
--- NOTE | 2017-12-02 01:28 | ED HEADACHE COMPLAINT ---
History of Present Illness General Chief Complaint: Headache Stated Complaint: BIBA LUNA Source: patient Exam Limitations: no limitations Vital Signs & Intake/Output Vital Signs & Intake/Output Vital Signs Date Time Temp Pulse Resp B/P B/P Pulse O2 O2 Flow FiO2 Mean Ox Delivery Rate 12/01 2349 Room Air 12/01 2342 98.4 81 18 162/97 97 Room Air ED Intake and Output 12/02 0000 12/01 1200 Intake Total 0 Output Total Balance 0 Intake, Oral 0 Allergies Coded Allergies: NO KNOWN ALLERGIES (10/13/15) Reconcile Medications Amoxicillin/Potassium Clav (Augmentin 875-125 Tablet) 875 MG-125 MG TABLET 1 TAB PO BID PELVIC INFECTION Ascorbic Acid (Vitamin C) 500 MG TABLET 500 MG PO BID HEALTH SUPPLEMENT Triage Note: PT C/O GENERALIZED HEADACHE THAT STARTED YESTERDAY AND HAS BEEN CONSTANT SINCE. PT REPORTS TAKING MOTRIN YESTERDAY WITH TEMPORARY RELIEF OF HEADACHE, DENIES TAKING MEDICATION TODAY. Triage Nurses Notes Reviewed? yes : No Patient currently breastfeeds: No HPI: Patient presents for evaluation of a typical migraine headache. Patient states that since yesterday she had a gradual onset of a right retro-orbital throbbing headache pain with light sensitivity. The patient has been constant and throbbing and the patient tried ibuprofen yesterday with transient relief. She states she is feeling a little bit better currently but the headache is still pretty severe. Past History Travel History Traveled to [place] past 21 day No Medical History Any Pertinent Medical History? 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 No Review of Systems Review of Systems Constitutional: Reports: no symptoms. Eyes: Reports: no symptoms. Ears, Nose, Throat, Mouth: Reports: no symptoms. Respiratory: Reports: no symptoms. Cardiovascular: Reports: no symptoms. Gastrointestinal/Abdominal: Reports: no symptoms. Genitourinary: Reports: no symptoms. Musculoskeletal: Reports: no symptoms. Skin: Reports: no symptoms. Neurological/Psychological: Reports: headache. Hematologic/Endocrine: Reports: no symptoms. Endocrine: Reports: no symptoms. Immunologic/Allergic: Reports: no symptoms. All Other Systems: Reviewed and Negative Physical Exam Physical Exam Cranial Nerves: SEE BELOW Comments: Gen.: Well-nourished, well-developed, no acute respiratory distress. Head: Normocephalic, atraumatic. Eyes: Normal inspection bilaterally, PERRLA, EOMI Ears: Normal inspection bilaterally Nose: Normal inspection Throat/mouth : Moist mucosa Neck: Supple, full range of motion, no goiter, no carotid bruits, equal carotid pulses Heart: Regular rate and rhythm, no murmurs rubs or gallops Lungs: Clear to auscultation bilaterally with normal air entry Chest: Nontender Back: Normal range of motion Abdomen: Nondistended, normal bowel sounds Extremities: Normal range of motion grossly, equal radial pulses, no cyanosis clubbing or edema, equal hand grasp, no pronator drift, no dysmetria Neurologic: Cranial nerves, right strabismus (patient states this is due to the light sensitivity and pain), speech is clear and without apparent aphasia, gait is stable Skin: warm and dry Psychiatric: Calm, cooperative, no apparent delusions or hallucinations Core Measures Sepsis Present: No Sepsis Focused Exam Completed? No Progress Differential Diagnosis: migraine LUNA, musculoskeletal pain, tension LUNA, viral cephalgia Plan of Care: Current Medications Sig/Bindu Start time Last Medication Dose Stop Time Status Admin Ketorolac 60 MG ONCE ONE 12/02 129 UNVr Tromethamine 12/02 130 (Toradol) Promethazine HCl 25 MG ONCE ONE 12/02 129 UNVr (Phenergen) 12/02 130 Comments: 12/02/2017 2:58:55 AM JOB is sleeping comfortably. Departure Departure Disposition: HOME OR SELF CARE Condition: Stable Clinical Impression Primary Impression: Migraine Qualifiers: Migraine type: unspecified Status migrainosus presence: with status migrainosus Intractability: not intractable Qualified Code: G43.901 - Migraine, unspecified, not intractable, with status migrainosus Referrals: Ariel ROJAS,Ariel (PCP/Family) Additional Instructions: Follow-up with your primary care doctor or neurologist this week for reevaluation. Return if any concerns or sudden worsening. Departure Forms: Customer Survey General Discharge Information
[2017-12-02 06:08] VITALS: BP 148/92
[2017-12-02] MEDS ORDERED: LISINOPRIL-HCT1 EAC1 PO (06:08)
== END 2017-12-02 06:09 ==
LOC: ERH 23:35
DX: G43.909 Migraine, unspecified, not intractable, without status migrainosus (principal)
CPT/HCPCS: 96372; J1885; J2550

== ENCOUNTER 2018-01-15 16:23 | Emergency (ER) | payer OTHER, MEDICARE ==
[~2018-01-15] VITALS: Ht 157.5 cm; Wt 143.8 kg
[~2018-01-15 16:23] MED LIST changes: +LISINOPRIL-HCT1 EAC1 PO
[2018-01-15 17:15] VITALS: BP 157/98
== END 2018-01-15 18:08 | disposition admitted as inpatient to this hospital (09) ==
LOC: ERH 16:23
DX: R21 Rash and other nonspecific skin eruption (principal)